=== PATIENT | female | born 1995 | race Caucasian/White ===

== ENCOUNTER → 2020-09-06 | Outpatient (CLI) | payer SELFPAY ==
[2020-09-06 14:42] VITALS: BMI 27.6
[2020-09-06 17:58] LABS: Amphetamine Urine VISTA NEGATIVE (<1000 ng/mL); Barbiturate Urine VISTA NEGATIVE (< 200 ng/mL); Benzodiazepine Urine VISTA NEGATIVE (< 200 ng/mL); Cocaine Urine VISTA NEGATIVE (< 300 ng/mL); Ecstacy Urine VISTA NEGATIVE (< 500 ng/mL); Methadone Urine VISTA NEGATIVE (< 300 ng/mL); PCP Urine VISTA NEGATIVE (< 25 ng/mL); THC Urine VISTA NEGATIVE (< 50 ng/mL); Vista UDS pH Range 6
[2020-09-10 20:08] LABS: Chlamydia By Nucleic Acid AMP Negative (Negative)
[2020-09-10 20:44] LABS: Gonococcus By Nucleic Acid AMP Negative (Negative)
[2020-09-11 18:53] LABS: HPV Reflexed? NOT INDICATED
== END | disposition home or self-care (01) ==
LOC: LABSPEC 16:33
PROVIDERS: Referring Provider Obstetrics & Gynecology; Visit Provider Obstetrics & Gynecology
DX: Z34.00 Encounter for supervision of normal first pregnancy, unspecified trimester (principal); Z12.4 Encounter for screening for malignant neoplasm of cervix
CPT/HCPCS: 80307; 87086; 87088; 87491; 87591; 88175; G0145

== ENCOUNTER → 2020-09-19 15:56 | Outpatient (CLI) | payer SELFPAY ==
[2020-09-19 15:05] VITALS: BMI 27.6
[2020-09-19 16:31] LABS: Absolute Lymphocyte Count 2.19 X10^3/uL (0.83-4.51); Absolute Neutrophil Count 6.1 X10^3/uL (2.0-7.7); Basophil# 0.03 X10^3/uL; Basophil% 0.3 % (0-1); Eosinophil# 0.14 X10^3/uL; Eosinophils% 1.5 % (0-5); Hematocrit 37.9 % (37-47); Hemoglobin 12.1 g/dL (12.0-15.0); Lymphocyte # 2.19 X10^3/ul (0.83-4.51); Lymphocyte % 23.9 % (19-41); Mean Corp Hgb Conc 31.9 g/dL (32-36); Mean Corpuscular Hgb 26.2 pg (27.0-32.0); Mean Platelet Vol. 9.9 fl (6.2-12.0); Monocyte% 7.6 % (0-10); NRBC Flagged by Analyzer 0 % (0-5); Neutrophil # 6.07 X10^3/uL (2.7-7.7); Neutrophil % 66.4 % (47-70); Platelet Count 278 K/mm3 (150-450); RBC Distribution Width CV 14.2 % (11.6-14.6); Red Blood Count 4.62 M/mm3 (4.2-5.4); White Blood Count 9.2 K/mm3 (4.4-11.0)
[2020-09-19 17:13] LABS: NATERA MAILED SPECIMEN
[2020-09-20 08:13] LABS: HIV - WCH Non-Reactive (Nonreactive); Hepatitis B Surface Antigen Non-Reactive (Nonreactive); Hepatitis C Antibody Non-Reactive (Nonreactive); Rubella IgG Reactive (Nonreactive); Syphilis Antibodies Non-reactive
== END ==
PROVIDERS: Referring Provider Obstetrics & Gynecology; Visit Provider Obstetrics & Gynecology
DX: Z34.81 Encounter for supervision of other normal pregnancy, first trimester (principal)
CPT/HCPCS: 36415; 85025; 86703; 86762; 86780; 86803; 86850; 86900; 86901; 87340

== ENCOUNTER → 2020-11-22 14:02 | Outpatient (CLI) | payer SELFPAY ==
[2020-10-17 10:55] VITALS: BMI 27.6
[2020-11-12 10:11] VITALS: BMI 27.6
--- NOTE | 2020-11-22 14:05 | US_ITS ---
STUDY: SECOND AND THIRD TRIMESTER OBSTETRICAL ULTRASOUND REASON FOR EXAM: Female, 25 years old size and dates LMP: 07/07/2020 TECHNIQUE: Transabdominal and Transvaginal TECHNICAL QUALITY: Adequate. PRIOR ULTRASOUND: None. FINDINGS: There is a single intrauterine fetus. The fetus is in a breech presentation. There is demonstrated cardiac activity with a heart rate of 166 bpm. There is a normal amniotic fluid volume. The largest amniotic fluid pocket measures 2.5 cm. . The placenta is posterior and low lying but not previa in location. There are Grade 1 placental changes. The cervix measures 4.4 cm in length. The bilateral adnexal regions are normal. BIOMETRY: BPD: 4.3 cm: 19 weeks, 0 days HC: 17.1 cm: 19 weeks, 5 days AC: 15.0 cm: 20 weeks, 1 days FL: 3.0 cm: 19 weeks, 2 days age by current US: 19 weeks, 4 days. ALYCIA by current US: 04/14/2021. Estimated weight: 311 grams, +/- 47 grams, 47 %. Age by LMP: 19 weeks, 5 days. ALYCIA by LMP: 04/13/2021. ANATOMY: Gender: Male Cranium: Normal lateral ventricles. Normal choroid plexus. Normal cerebellum. Normal cisterna magna. Normal face, nose and lips. Chest: Normal 4-chamber heart. Abdomen/Pelvis: Normal diaphragm. Normal stomach. Normal abdominal wall. Normal cord insertion. Limited 3 vessel umbilical cord view Normal kidneys. Normal bladder. Spine: Normal cervical spine. Normal thoracic spine. Normal lumbar spine. Limited view of the sacrum Extremities: Normal bilateral upper extremities. Normal bilateral lower extremities. US/OB Anatomy Scan IMPRESSION: Single live intrauterine at 19 weeks 4 days by current ultrasound with ALYCIA of 04/14/2021. Heart rate of 166 bpm. Placenta is posterior and low-lying at this point, short-term sonographic follow-up recommended to assure migration away from the cervix. anatomy is sonographically normal low there was limited evaluation of the 3 vessel cord and the sacrum due to positioning Electronically Signed: Zack Garrison MD at 8:49 EDT , Service support ,
== END ==
PROVIDERS: Visit Provider Obstetrics & Gynecology
DX: Z34.01 Encounter for supervision of normal first pregnancy, first trimester (principal)
CPT/HCPCS: 76805; 76817

== ENCOUNTER → 2020-11-28 | Outpatient (CLI) | payer SELFPAY ==
[2020-11-28 13:56] VITALS: BMI 27.6
== END | disposition home or self-care (01) ==
PROVIDERS: Referring Provider Nurse Practitioner Women's Health; Visit Provider Nurse Practitioner Women's Health
DX: O23.40 Unspecified infection of urinary tract in pregnancy, unspecified trimester (principal); Z3A.00 Weeks of gestation of pregnancy not specified
CPT/HCPCS: 87086; 87088

== ENCOUNTER → 2020-12-07 08:54 | Outpatient (CLI) | payer SELFPAY ==
[2020-11-12 10:11] VITALS: BMI 27.6
[2020-11-28 13:56] VITALS: BMI 27.6
--- NOTE | 2020-12-07 08:54 | US_ITS ---
STUDY: SECOND AND THIRD TRIMESTER OBSTETRICAL ULTRASOUND - LIMITED REASON FOR EXAM: Female, 25 years old f/u anatomy LMP: 07/07/2020. PRIOR ULTRASOUND: Comparison is made with prior examination dated 11/22/2020. TECHNIQUE: Transabdominal and Transvaginal TECHNICAL QUALITY: Adequate. FINDINGS: There is a single intrauterine fetus. The fetus is in a cephalic presentation. There is demonstrated cardiac activity with a heart rate of 150 bpm. There is a normal amniotic fluid volume. The largest amniotic fluid pocket measures 3 cm. The amniotic fluid index (BRENDEN) is within normal limits. The placenta is posterior in location and is not low lying. The tip of the placenta is at 2.4 cm proximal to the cervical os. There are Grade 0 placental changes. The cervix measures 6 cm in length. There is evidence of a three-vessel cord. The spine including the sacrum is unremarkable. US/OB Limited (No Biometrics) IMPRESSION: Posterior placenta. The tip of the placenta is at 2.4 cm proximal to the cervical os. Electronically Signed: Eber Muller MD at 13:59 EDT , Service support ,
== END ==
PROVIDERS: Referring Provider Obstetrics & Gynecology; Visit Provider Obstetrics & Gynecology
DX: Z34.01 Encounter for supervision of normal first pregnancy, first trimester (principal)
CPT/HCPCS: 76815

== ENCOUNTER → 2021-01-21 15:43 | Outpatient (CLI) | payer MEDICAID, SELFPAY ==
[2021-01-21 15:59] LABS: Absolute Lymphocyte Count 1.87 X10^3/uL (0.83-4.51); Absolute Neutrophil Count 9.2 X10^3/uL (2.0-7.7); Basophil# 0.04 X10^3/uL; Basophil% 0.3 % (0-1); Eosinophil# 0.09 X10^3/uL; Eosinophils% 0.8 % (0-5); Hematocrit 36.1 % (37-47); Hemoglobin 11.2 g/dL (12.0-15.0); Lymphocyte # 1.87 X10^3/ul (0.83-4.51); Lymphocyte % 15.7 % (19-41); Mean Corpuscular Hgb 25.7 pg (27.0-32.0); Mean Platelet Vol. 9.4 fl (6.2-12.0); Monocyte# 0.62 X10^3/uL; Monocyte% 5.2 % (0-10); NRBC Flagged by Analyzer 0 % (0-5); Neutrophil # 9.19 X10^3/uL (2.7-7.7); Neutrophil % 77.3 % (47-70); Platelet Count 292 K/mm3 (150-450); RBC Distribution Width CV 13.9 % (11.6-14.6); RBC Distribution Width SD 42.6 fl (35.1-43.9); Red Blood Count 4.35 M/mm3 (4.2-5.4); White Blood Count 11.9 K/mm3 (4.4-11.0)
[2021-01-21 16:11] LABS: Glucose Challenge Gest 1H 50g 142 mg/dL (70-140)
== END ==
PROVIDERS: Referring Provider Obstetrics & Gynecology; Visit Provider Obstetrics & Gynecology
DX: O26.899 Other specified pregnancy related conditions, unspecified trimester (principal); Z67.91 Unspecified blood type, Rh negative; Z13.1 Encounter for screening for diabetes mellitus; Z3A.00 Weeks of gestation of pregnancy not specified
CPT/HCPCS: 36415; 82950; 85025; 86850; 86900; 86901

== ENCOUNTER → 2021-01-28 06:43 | Outpatient (CLI) | payer SELFPAY ==
[2021-01-28 08:41] LABS: Glucose GTT-Gestational 1 Hr 162 mg/dL (<190)
[2021-01-28 08:44] LABS: Glucose GTT-Gestation. Fasting 79 mg/dL (<105)
[2021-01-28 09:27] LABS: Glucose GTT-Gestational 2 Hr 147 mg/dL (<165)
[2021-01-28 10:45] LABS: Glucose GTT-Gestational 3 Hr 117 L (<145)
== END ==
PROVIDERS: Referring Provider Obstetrics & Gynecology; Visit Provider Obstetrics & Gynecology
DX: Z13.1 Encounter for screening for diabetes mellitus (principal)
CPT/HCPCS: 36415; 82951; 82952

== ENCOUNTER → 2021-03-01 12:18 | Outpatient (CLI) | payer SELFPAY | PROVIDERS: Visit Provider Obstetrics & Gynecology | DX: Z34.01 Encounter for supervision of normal first pregnancy, first trimester (principal) | CPT/HCPCS: 87086 ==

== ENCOUNTER → 2021-03-18 | Outpatient (CLI) | payer SELFPAY | END | disposition home or self-care (01) | LOC: LABSPEC 14:21 | PROVIDERS: Referring Provider Obstetrics & Gynecology; Visit Provider Obstetrics & Gynecology | DX: Z34.93 Encounter for supervision of normal pregnancy, unspecified, third trimester (principal) | CPT/HCPCS: 87081 ==

== ENCOUNTER 2021-04-11 23:30 | Inpatient (IN) | payer MEDICAID, SELFPAY ==
[2020-09-06 14:42] VITALS: BMI 27.6
[2021-04-11 19:49] VITALS: PULSE 92; O2SAT 98
[2021-04-11 19:55] VITALS: BP 137/90; PULSE 83; PULSE 91; TEMP 36.9; O2SAT 98
[2021-04-11 20:07] VITALS: BP 130/83; PULSE 83
[2021-04-11 20:16] VITALS: BMI 35.1
[2021-04-11] MEDS: hydrOXYzine PAM 25 MG Capsule 50 MG PO (22:39)
[2021-04-12] VITALS (63 sets, daily range): BP systolic 104–163; BP diastolic 57–99; PULSE 66–97; RESP 16; TEMP 36.2–37.7; O2SAT 85–100
[2021-04-12] MEDS: Lactated Ringers 1,000 ML 50 ML IV (00:30)
[2021-04-12] MEDS: Lactated Ringers 500 ML 999 ML IV ×3 (00:40→08:37)
[2021-04-12 00:44] LABS: Absolute Lymphocyte Count 1.67 X10^3/uL (0.83-4.51); Absolute Neutrophil Count 12.2 X10^3/uL (2.0-7.7); Basophil# 0.05 X10^3/uL; Basophil% 0.3 % (0-1); Eosinophil# 0.03 X10^3/uL; Eosinophils% 0.2 % (0-5); Hemoglobin 12.8 g/dL (12.0-15.0); Lymphocyte # 1.67 X10^3/ul (0.83-4.51); Lymphocyte % 11.4 % (19-41); Mean Corp Hgb Conc 32.8 g/dL (32-36); Mean Corpuscular Hgb 25.2 pg (27.0-32.0); Mean Corpuscular Volume 76.9 fL (81-99); Mean Platelet Vol. 10.3 fl (6.2-12.0); Monocyte# 0.68 X10^3/uL; Monocyte% 4.6 % (0-10); NRBC Flagged by Analyzer 0 % (0-5); Neutrophil # 12.18 X10^3/uL (2.7-7.7); Neutrophil % 83.2 % (47-70); Platelet Count 338 K/mm3 (150-450); RBC Distribution Width CV 15.9 % (11.6-14.6); Red Blood Count 5.07 M/mm3 (4.2-5.4); White Blood Count 14.7 K/mm3 (4.4-11.0)
[2021-04-12] MEDS: fentaNYL-bupivacaine (epidural) 100 ML BAG EPIDURAL ×3 (01:42→12:15)
[2021-04-12] MEDS: Lactated Ringers 1,000 ML 200 ML IV (05:28)
--- NOTE | 2021-04-12 07:04 | HP.PCM.OB_ITS ---
HPI - General General Date of Admission: 04/11/21 HPI Narrative TERRENCE SOSA, is a 25 who presents to L&D with painful contractions around 9 pm last night. She changed her cx from 1 cm to 2 cm and was requesting epidural. Her was uncomplicated. She is RH negative and GBS negative. Maternal Data Information ALYCIA Calculator Estimated Delivery Date Method Current WG Current Estimate 04/13/21 LMP (Certain) 39w 6d Other Estimates 04/10/21 Ultrasound #1 40w 2d PFSH PFSH Medical History (Updated 04/12/21 @ 07:[address] Delma Hayden, DO) Abnormal glucose affecting Home Medications prenat.vits,roslyn,[id number] 1 tab PO DAILY 09/06/20 [History Last Taken Unknown] Allergy/AdvReac Type Severity Reaction Status Date / Time No Known Allergies Allergy Verified 04/11/21 20:17 Family History Father Cancer prostate CAD (coronary artery disease) Mother Cancer appendix with mets 2008 Grandmother No problems noted. Brother Cancer bone cancer age 10 Surgical History (Updated 04/11/21 @ 22:46 by Beronica Chiu) History of surgery Social History adopted: No household members: spouse current occupational status: employed current occupation: [employer] Smoking Status: Never smoker alcohol intake: current alcohol intake frequency: holidays/special occasions only additional social history: Spouse:Christopher History 1 Elective abortions Hx Para 0 Spontaneous abortions Hx # Term Pregnancies Ectopic pregnancies Hx # Pregnancies Multiple births # of living children Visit Details Expected Delivery Route/Plan Labor Preferences- CB/BF classes: discussed labor support person: partner Jeff labor intervention preferences: discussed possible IOL at term due to living over an hour away. pain management options preferred: open to epidural prefers minimal intervention cut cord/dad catch: ye : yes PP control planned: discussed possible routes of delivery and associated risks: special requests: [] Plans covid status: non immune, counseled regarding risk of covid in vs vaccination and considering vaccination flu vaccine: declined tdap vaccine: given rhogam: given LARC form signed: declined movement and labor precautions reviewed. Problem list reviewed and updated with the most current plan of care details and appropriate orders placed. Relevant counseling for the gestational age provided. Continue routine care and follow up unless otherwise noted in visit notes/problem list details OB Flowsheet Initial Weight: 171 lb Date -?-?-?-?-?-?-?-?-?-?-?--?- EGA Weight BP Urine Prot -?-?-?-?-?-?-?-?-?-?-?-?- Glucose FHR FuHt Pres Dilation -?-?-?-?-?-?-?-?-?-?-?-?- Effaced St Visit Note 09/06/20 -?-?-?-?-?-?-?-?-?-?-?-?- 8w 5d 171 lb (+0 oz) 130/80 -?-?-?-?-?-?-?-?-?-?-?-?- 160 -?-?-?-?-?-?-?-?-?-?-?-?- GP - CRL 22mm co nsistent with LMP. GP - CRL 22mm consistent wit h LMP. Small BHAVANA noted on initial OB - repeat scan in 1-2w 09/19/20 -?-?-?-?-?-?-?-?-?-?-?-?- 10w 4d 171 lb 6 oz (+6 oz) 112/78 Negative -?-?-?-?-?-?-?-?-?-?-?-?- Negative 175 -?-?-?-?-?-?-?-?-?-?-?-?- GP - no cramping or bleeding. BHAVANA resolved. 10/17/20 -?-?-?-?-?-?-?-?-?-?-?-?- 14w 4d 170 lb 8 oz (-8 oz) 104/72 Negative -?-?-?-?-?-?-?-?-?-?-?-?- Negative 160 -?-?-?-?-?-?-?-?-?-?-?-?- GP - no cramping or bleeding. Anatomy scan ordered. It's a boy!! 11/12/20 -?-?-?-?-?-?-?-?-?-?-?-?- 18w 2d 176 lb (+5 lb) 118/70 Negative -?-?-?-?-?-?-?-?-?-?-?-?- Negative 155 -?-?-?-?-?-?-?-?-?-?-?-?- GP - no LOF, VB, DFM, ctx. Anatomy scan 11/22. Discussed cramping/back pain. 12/10/20 -?-?-?-?-?-?-?-?-?-?-?-?- 22w 2d 185 lb (+14 lb) 102/88 Negative -?-?-?-?-?-?-?-?-?-?-?-?- Negative 150 -?-?-?-?-?-?-?-?-?-?-?-?- SM- no vb lof go od fm no regular ctx 01/07/21 -?-?-?-?-?-?-?-?-?-?-?-?- 26w 2d 191 lb (+20 lb) 110/80 -?-?-?-?-?-?-?-?-?-?-?-?- 150 -?-?-?-?-?-?-?-?-?-?-?--?- Sm- no vb lof go od fm no regular ctx 01/21/21 -?-?-?-?-?-?-?-?-?-?-?-?- 28w 2d 195 lb (+24 lb) 100/72 Negative -?--?-?-?-?-?-?-?-?-?-?-?- Negative 150 28 -?-?-?-?-?-?-?-?-?-?-?-?- SM- no vb lof go od fm no regular ctx labs today tdap 02/05/21 -?-?-?-?-?-?-?-?-?-?-?-?- 30w 3d 197 lb (+26 lb) 132/86 Negative -?-?-?-?-?-?-?-?-?-?-?-?- Negative 145 31 -?-?-?-?-?-?-?-?-?-?-?-?- SM- no vb lof go od fm no reuglar ctx 02/18/21 -?-?-?-?-?-?-?-?-?-?-?-?- 32w 2d 205 lb 8 oz (+34 lb 8 oz) 110/72 Negative -?-?-?-?-?-?-?-?-?-?-?-?- Negative 125 32 -?-?-?-?-?-?-?-?-?-?-?-?- SM- no vb lof go od fm no regular ctx 03/01/21 -?-?-?-?-?-?-?-?-?-?-?-?- 33w 6d 205 lb (+34 lb) 120/68 Negative -?-?-?-?-?-?-?-?-?-?-?-?- Negative 134 33 0 -?-?-?-?-?-?-?-?-?-?-?-?- 0 JV- no l of, vaginal bleeding, or dec fm. pt is being seen unscheduled due to pain. PTL precautions discussed 03/05/21 -?-?-?-?-?-?-?-?-?-?-?-?- 34w 3d 206 lb (+35 lb) 124/86 Negative -?-?-?-?-?-?-?-?-?-?-?-?- Negative 145 34 -?-?-?-?-?-?-?-?-?-?-?-?- SM- no vb lof go od fm no regular ctx 03/18/21 -?-?-?-?-?-?-?-?-?-?-?-?- 36w 2d 217 lb (+46 lb) 126/88 Negative -?-?-?-?-?-?-?-?-?-?-?-?- Negative -?-?-?-?-?-?-?-?-?-?-?-?- 03/29/21 -?-?-?-?-?-?-?-?-?-?-?-?- 37w 6d 214 lb 2 oz (+43 lb 2 oz) 138/84 Negative -?-?-?-?-?-?-?-?-?-?-?-?- Negative 140 38 Cephalic 0 -?-?-?-?-?-?-?-?-?-?-?-?- SM- no vb lof go od fm nor euglar ctx 04/05/21 -?-?-?-?-?-?-?-?-?-?-?-?- 38w 6d 216 lb (+45 lb) 122/80 Negative -?-?-?-?-?-?-?-?-?-?-?-?- Negative 140 39 Cephalic 1 -?-?-?-?-?-?-?-?-?-?-?-?- SM- no vb lof go od fm no regular ctx 04/11/21 -?-?-?-?-?-?-?-?-?-?-?-?- 39w 5d 218 lb 9.6 oz (+47 lb 9.6 oz) 137/90 137/90 130/83 162/99 163/94 135/88 143/88 130/93 122/78 125/81 130/83 130/81 128/83 140/93 130/89 131/78 124/78 119/71 116/70 104/57 124/81 124/78 111/61 -?-?-?-?-?-?-?-?-?-?-?-?- -?-?-?-?-?-?-?-?-?-?-?-?- ROS Constitutional Constitutional: Denies change in weight, fatigue, fever(s), headache(s), poor appetite or weakness Eyes Eyes: Denies blurry vision, change in vision, seeing flashes or spots in vision ENT HEENT: Denies dizziness, headache(s), loss taste/smell or sore throat Cardiovascular Cardiovascular: Denies chest pain, dizziness, dyspnea, irregular heart rhythm, leg edema, palpitations, rapid heart rate or vomiting Respiratory/Chest Respiratory/Chest: Denies chest tightness, cough, dyspnea or breast pain Gastrointestinal Gastrointestinal: Denies abdominal pain, anorexia, constipation, cramping, diarrhea, hemorrhoids, vomiting or weight changes Genitourinary Genitourinary: Denies dysuria, flank pain, genital lesions, genital pain, urinary frequency or urinary urgency Musculoskeletal Musculoskeletal: Denies back pain, difficulty walking, joint pain, limited range of motion, muscle cramps or numbness Integumentary Integumentary: Denies lesions or unusual bruising Neurologic Neurologic: Denies abnormal movements, abnormal speech, dizziness, numbness, seizure-like activity or syncope Psychiatric Psychiatric: Denies anxiety, behavioral changes, change in appetite, change in libido, cognitive impairment, confusion, depression, difficulty concentrating, hallucinations or suicidal thoughts Endocrine Endocrinology: Denies excessive sweating, polydipsia or polyuria Hematologic/Lymphatic Hematologic/Lymphatic: Denies easy bleeding, easy bruising or lymphadenopathy Allergic/Immunologic Allergic/Immunologic: Denies itchy eyes, lip swelling, seasonal rhinorrhea, rhinitis, throat swelling, tongue swelling, eczemia, wheezing or asthma Vital Signs Vital Signs Vital Signs: 04/11/21 19:49 04/11/21 19:55 04/11/21 20:07 Temperature 98.4 F Temperature Source Temporal Pulse Rate 92 91 83 Blood Pressure 137/90 H 130/83 H BP Systolic 137 130 BP Diastolic 90 83 Pulse Ox 98 98 04/12/21 00:45 04/12/21 00:46 04/12/21 00:47 Temperature 97.8 F Temperature Source Temporal Pulse Rate 71 72 Blood Pressure 162/99 H BP Systolic 162 BP Diastolic 99 Pulse Ox 100 93 04/12/21 00:48 04/12/21 00:57 04/12/21 01:08 Temperature Temperature Source Pulse Rate 79 93 91 Blood Pressure 163/94 H 135/88 H BP Systolic 163 135 BP Diastolic 94 88 Pulse Ox 100 04/12/21 01:12 04/12/21 01:13 04/12/21 01:18 Temperature Temperature Source Pulse Rate 80 77 81 Blood Pressure 143/88 H BP Systolic 143 BP Diastolic 88 Pulse Ox 100 99 04/12/21 01:22 04/12/21 01:23 04/12/21 01:27 Temperature Temperature Source Pulse Rate 81 Blood Pressure 130/93 H 122/78 H BP Systolic 130 122 BP Diastolic 93 78 Pulse Ox 96 04/12/21 01:28 04/12/21 01:33 04/12/21 01:37 Temperature Temperature Source Pulse Rate 80 87 89 Blood Pressure 125/81 H BP Systolic 125 BP Diastolic 81 Pulse Ox 99 99 04/12/21 01:38 04/12/21 01:42 04/12/21 01:43 Temperature Temperature Source Pulse Rate 77 84 77 Blood Pressure 130/83 H 130/81 H BP Systolic 130 130 BP Diastolic 83 81 Pulse Ox 98 99 04/12/21 01:47 04/12/21 01:48 04/12/21 01:53 Temperature Temperature Source Pulse Rate 81 82 Blood Pressure 128/83 H 140/93 H BP Systolic 128 140 BP Diastolic 83 93 Pulse Ox 100 98 04/12/21 01:57 04/12/21 01:58 04/12/21 02:02 Temperature Temperature Source Pulse Rate 85 80 Blood Pressure 130/89 H 131/78 H BP Systolic 130 131 BP Diastolic 89 78 Pulse Ox 100 04/12/21 02:03 04/12/21 02:06 04/12/21 02:08 Temperature Temperature Source Pulse Rate 73 90 77 Blood Pressure 124/78 H BP Systolic 124 BP Diastolic 78 Pulse Ox 100 99 04/12/21 02:13 04/12/21 02:18 04/12/21 02:19 Temperature 97.7 F L Temperature Source Temporal Pulse Rate 85 81 Blood Pressure 119/71 BP Systolic 119 BP Diastolic 71 Pulse Ox 100 98 04/12/21 03:13 04/12/21 03:14 04/12/21 04:04 Temperature 99.8 F H 98.3 F Temperature Source Temporal Temporal Pulse Rate 89 77 Blood Pressure 116/70 104/57 L BP Systolic 116 104 BP Diastolic 70 57 Pulse Ox 98 96 04/12/21 04:55 04/12/21 05:34 04/12/21 06:48 Temperature 99.2 F H 99.7 F H 99.3 F H Temperature Source Temporal Temporal Temporal Pulse Rate 82 84 Blood Pressure 124/81 H 124/78 H 111/61 BP Systolic 124 124 111 BP Diastolic 81 78 61 Pulse Ox 99 97 04/12/21 06:49 Temperature Temperature Source Pulse Rate 89 Blood Pressure BP Systolic BP Diastolic Pulse Ox 97 Weight Weight: 218 lb 9.6 oz Body Mass Index (BMI) 35.1 Physical Exam Const alert, oriented x3, no apparent distress and healthy appearing General Appearance: cooperative; Negative for anxious HEENT normocephalic Face and Sinus: normal facial exam Eyes EOMs intact bilaterally and no scleral icterus General Eye: normal appearance of both eyes Neck full ROM and supple Lymph Lymphatic: no lymphadenopathy noted Chest Chest: abnormal inspection of the chest Resp normal respiratory effort Effort and Inspection: able to speak in complete sentences Cardio regular rate GI soft to palpation and non-tender Inspection: gravid Palpation: soft; Negative for tender external exam normal Manual OB Exam: dilated currently 5.5 with bulging membranes Back/Spine no CVA tenderness Extremity normal to inspection, full ROM and no clubbing, cyanosis or edema General Extremity: Negative for calf tenderness or edema Skin Lesions: no lesions Rashes: no rashes Psych mental status grossly normal Labs Labs Labs: Blood Type B NEGATIVE Antibody Screen NEGATIVE Hct 39.0 % (37-47) Hgb 12.8 g/dL (12.0-15.0) Obstetrics US Syphilis Total Ab Non-reactive Rubella IgG Antibody Reactive (Nonreactive) Hep Bs Antigen Non-Reactive (Nonreactive) Neisseria gonorrhoeae DNA (NIDA) Negative (Negative) HIV 1&2 Antibody Non-Reactive (Nonreactive) Glucose 1 Hr 50 gm 142 mg/dL (70-140) H Assessment & Plan (1) : QUALIFIERS: Weeks of gestation: 37 weeks Qualified Code(s): Z3A.37 - 37 weeks gestation of COMMENT: Negative GBS, Declines carrier and afp screen. NIPT low risk. nl anatomy (2) Supervision of normal first : QUALIFIERS: Trimester: first trimester Qualified Code(s): Z34.01 - Encounter for supervision of normal first , first trimester COMMENT: PRR ALYCIA:04/13/21 Raman Carrizales Spouse: Hussein (3) Rh negative status during : COMMENT: rhogam given at 28 weeks PRN (4) Abnormal glucose affecting : COMMENT: -NL 3 hr GTT (5) Active labor: PLAN: Patient presents IAL, plan expectant management for , pitocin/AROM PRN if needed. Pain management: plans epidural. GBS negative. Management of any complications: none I have reviewed the [facility] and made any clinically relevant updates.
[2021-04-12] MEDS: Oxytocin 30 units/NS 500 ml 30 UNITS/500 ML IV.SOLN IV (09:22)
[2021-04-12] MEDS: Ondansetron 4 MG/2 ML Vial IV (10:23)
[2021-04-12] MEDS: Oxytocin 30 units/NS 500 ml 30 UNITS/500 ML IV.SOLN 334 UNITS IV (12:34)
[2021-04-12] MEDS: Methylergonovine 0.2 MG/ML Ampul IM (12:37)
--- NOTE | 2021-04-12 13:02 | OP.PCM_ITS ---
Maternal Data Information ALYCIA Calculator Estimated Delivery Date Method Current WG Current Estimate 04/13/21 LMP (Certain) 39w 6d Other Estimates 04/10/21 Ultrasound #1 40w 2d Vaginal Delivery Maternal Presentation Maternal Presentation: Active Labor Operative Information Date of Procedure: 04/12/21 Pre-Operative Diagnosis: 39 weeks 5 days active labor Post-Operative Diagnosis: 39 weeks 5 days active labor , maternal exhaustion Surgery / Procedure Performed: Vacuum Assisted Vaginal Delivery Type of Anesthesia: Epidural Estimated Blood Loss: 300cc Findings Description of Procedure: Patient pushed for 3 hours and requested a vacuum assistance due to exhaustion. The infant right occiput occipital anterior presentation 100% effacement and +3 station. Perineum was prepped with Betadine solution the bladder was drained. The Kiwi vacuum was placed on the correct placement in front of the posterior fontanelle which was confirmed digitally. With the patient's next contraction the vacuum was inflated and a gentle downward pressure was used to assist with bringing the baby's head to the peritoneum and delivered the vacuum was released and the heart tones r emained stable. The head was ultimately Delivered in the ZEE presentation. The head was delivered atraumatically and a loose nuchal cord ?2 was identified and easily reduced over the 's head. The anterior and posterior shoulders delivered without complication followed by the rest of the and the infant was placed on the maternal abdomen. Delayed cord clamping was employed for approximately 60 seconds. Cord was clamped and cut and gentle traction was applied to the cord and the placenta delivered spontaneously immediately following it was noted to be intact with three-vessel cord. The perineum and vagina were inspected and There was noted to be a 2nd degree perineal laceration that was repaired using a 2-0 vicryl. EBL was 300cc and there continued to be uterine atony with slight bleeding. Methergine IM was given. Patient and infant tolerated delivery well. Presentation: Vertex and ZEE Amniotic Membrane Rupture Type: Artificial Amniotic Fluid Description: Moderate meconium Placental Delivery Description: Expressed Placenta Disposition: [facility] Cord Vessel Description: 3 Vessels Cord Entanglement: Around neck x 2, loose Nuchal Cord Compression: Without compression Infant A Gender: Male (1 minute): 6 (5 minute): 8 Delayed Cord Clamping: Yes Post Vaginal Delivery Medications Given After Delivery: IV Pitocin Episiotomy Description: None Laceration: Midline and 2nd degree Complication Complications: None Multi Select Codes Urinary/Genital Urinary/Genital CPT Codes: 63144 Vaginal Delivery [facility]
--- NOTE | 2021-04-12 13:12 | PCM.DC ---
Discharge Instructions Diet Discharge Diet: No restrictions Activity Discharge Activity: Return to Normal Activity, May Not Drive (while taking narcotic pain medications.) and May Shower May resume sexual activity in: 4-6 weeks Dressing / Incision Call your doctor if your incision/area has: Continuous Slow Oozing, Sudden Increased Bleeding, Increased Pain/ Swelling, Increased Redness and Foul Smelling Discharge Follow Up Care Please Follow Up With: Delma Hayden DO When: Call [phone] to make an appointment with your doctor in 6 weeks. If you had elevated blood pressure or 4th degree laceration, you will need to be seen in 2 weeks. Test Results: Test results from this visit will be discussed in further detail at your follow-up appointment, if applicable. Discharge Plan Admission Admit Date/Time: 04/11/21 23:30 Attending Provider: Delma Hayden Primary Care Provider: Care Physician,No Primary Discharge Orders/Prescriptions Prescriptions: New ibuprofen 800 mg tablet 800 mg PO Q8H PRN (Reason: Pain, Moderate) 7 Days Qty: 30 RF: 0 docusate sodium [Colace] 100 mg capsule 100 mg PO DAILY 14 Days Qty: 14 RF: 0 Continued prenat.vits,roslyn,[id number] Tablet 1 tab PO DAILY RF: 0 Referrals / Follow Up: Care Physician,No Primary [Primary Care Provider] - Disposition Disposition (needs filled in before D/C Order can be placed): Home, Self Care
[2021-04-12] MEDS: 0.9% Saline Lock 10 ML Syringe IV (15:11)
--- NOTE | 2021-04-12 16:03 | NURSING ---
Epidural catheter removed. Blue tip intact.
[2021-04-12] MEDS: Acetaminophen 500 MG Tablet 1000 MG PO (16:04)
--- NOTE | 2021-04-12 16:04 | NURSING ---
Report given to Allison Pineda RN, who will now assume care of this patient at this time.
[2021-04-12] MEDS: Ibuprofen 600 MG Tablet PO (17:47)
[2021-04-12] MEDS: Senna/Docusate Sodium 1 Tablet PO (21:43)
[2021-04-13 00:51] VITALS: BP 130/73; PULSE 80; RESP 16; TEMP 36.7
[2021-04-13] MEDS: Ibuprofen 600 MG Tablet PO ×2 (01:51→08:51)
[2021-04-13] MEDS: Acetaminophen 500 MG Tablet 1000 MG PO ×2 (02:45→19:42)
[2021-04-13 05:06] VITALS: BP 130/76; PULSE 74; RESP 16; TEMP 36.6
--- NOTE | 2021-04-13 08:45 | PCM.PN.OB ---
Subjective Subjective Patient doing well without complaints. Tolerating PO. Ambulating and voiding without difficulty. Feeding well. Denies chest pain, shortness of breath, calf pain/swelling, fevers, chills, lightheadedness. Baby is in NICU for hypoglycemia Objective Data Objective Data Vital Signs: Vital Signs Temp Pulse Resp BP Pulse Ox 97.8 F 74 16 130/76 H 98 04/13/21 05:06 04/13/21 05:06 04/13/21 05:06 04/13/21 05:06 04/12/21 11:49 Oxygen Delivery Method Room Air Weight: 218 lb 9.6 oz Body Mass Index (BMI) 35.1 Intake & Output: Intake and Output for Last 24 Hours 04/11/21 04/12/21 04/13/21 23:59 23:59 23:59 Intake Total 800 / 800 4237.95 / 4237.95 Output Total 2250 / 2250 Balance 800 / 800 1987.95 / 1987.95 Lab / Micro Data Result Diagrams: 04/12/21 00:30 Labs: Laboratory Results - last 24 hr 04/12/21 16:15: Screen NEGATIVE, Baby's Blood Type O POSITIVE, Baby's CAMPBELL NEGATIVE Micro: Microbiology 04/12/21 00:15 Nasal Secretion SARS-CoV-2 Antigen (Rapid) - Final ROS Constitutional Constitutional: Denies chills, fatigue, fever(s), poor appetite or weakness Eyes Eyes: Denies blurry vision, change in vision, seeing flashes or spots in vision ENT HEENT: Denies dizziness, headache(s), loss taste/smell or sore throat Cardiovascular Cardiovascular: Denies chest pain, dizziness, dyspnea, irregular heart rhythm, palpitations or rapid heart rate Respiratory/Chest Respiratory/Chest: Denies chest tightness, cough, dyspnea or breast pain Gastrointestinal Gastrointestinal: Denies abdominal pain, constipation or vomiting Genitourinary Genitourinary: Denies dysuria or flank pain Musculoskeletal Musculoskeletal: Denies difficulty walking, joint pain, limited range of motion or numbness Neurologic Neurologic: Denies abnormal movements, abnormal speech, dizziness, numbness, seizure-like activity or syncope Psychiatric Psychiatric: Denies anxiety, behavioral changes, change in appetite, confusion, depression or suicidal thoughts Physical Exam Const alert, oriented x3 and no apparent distress General Appearance: cooperative and comfortable Resp normal respiratory effort Cardio regular rate GI normal to inspection, nondistended, normoactive bowel sounds GI Narrative: uterus is firm below umbilicus Palpation: soft Bimanual Exam - Adnexa, Other: Negative for cul-de-sac fullness Back/Spine no CVA tenderness and thoraco-lumbar ROM normal Extremity normal to inspection, no clubbing, cyanosis or edema, no calf tenderness and no pedal edema Psych mental status grossly normal, thought process normal, cooperative, affect normal, speech normal, activity/motor behavior normal, denies homicidal ideation and denies suicidal ideation Assessment & Plan (1) state: PLAN: s/p PPD # 1 1. routine post delivery care 2. breast feeding- support given 3. rh positive 4. rubella immune 5. DC plan for tomorrow due to ongoing perineal pain and baby in NICU
[2021-04-13] MEDS: Prenatal Vits Tablet 1 TABLET PO (08:52)
[2021-04-13 09:30] VITALS: BP 125/78; PULSE 78; RESP 16; TEMP 36.2; O2SAT 98
[2021-04-13] MEDS: Senna/Docusate Sodium 1 Tablet PO (10:37)
[2021-04-13 12:51] VITALS: BP 117/76; PULSE 77; RESP 16; TEMP 36.4; O2SAT 97
[2021-04-13 17:30] VITALS: BP 119/79; PULSE 80; RESP 16; TEMP 36.7
[2021-04-13 19:49] VITALS: BP 113/77; PULSE 83; RESP 16; TEMP 36.2; O2SAT 98
[2021-04-14] MEDS: Ibuprofen 600 MG Tablet PO ×2 (03:12→12:21)
[2021-04-14 03:15] VITALS: BP 118/76; PULSE 82; RESP 16; TEMP 36.4; O2SAT 98
--- NOTE | 2021-04-14 09:37 | PCM.PN.OB ---
Subjective Subjective Patient doing well without complaints. Tolerating PO. Ambulating and voiding without difficulty. Feeding well. Denies chest pain, shortness of breath, calf pain/swelling, fevers, chills, lightheadedness. Objective Data Objective Data Vital Signs: Vital Signs Temp Pulse Resp BP Pulse Ox 97.5 F L 82 16 118/76 98 04/14/21 03:15 04/14/21 03:15 04/14/21 03:15 04/14/21 03:15 04/14/21 03:15 Oxygen Delivery Method Room Air Weight: 218 lb 9.6 oz Body Mass Index (BMI) 35.1 Intake & Output: Intake and Output for Last 24 Hours 04/12/21 04/13/21 04/14/21 23:59 23:59 23:59 Intake Total 4237.95 / 4237.95 Output Total 2250 / 2250 Balance / 1986. Lab / Micro Data Result Diagrams: 04/12/21 00:30 Micro: Microbiology 04/12/21 00:15 Nasal Secretion SARS-CoV-2 Antigen (Rapid) - Final ROS Constitutional Constitutional: Denies chills, fatigue, fever(s), poor appetite or weakness Eyes Eyes: Denies blurry vision, change in vision, seeing flashes or spots in vision ENT HEENT: Denies dizziness, headache(s), loss taste/smell or sore throat Cardiovascular Cardiovascular: Denies chest pain, dizziness, dyspnea, irregular heart rhythm, palpitations or rapid heart rate Respiratory/Chest Respiratory/Chest: Denies chest tightness, cough, dyspnea or breast pain Gastrointestinal Gastrointestinal: Denies abdominal pain, constipation or vomiting Genitourinary Genitourinary: Denies dysuria or flank pain Musculoskeletal Musculoskeletal: Denies difficulty walking, joint pain, limited range of motion or numbness Neurologic Neurologic: Denies abnormal movements, abnormal speech, dizziness, numbness, seizure-like activity or syncope Psychiatric Psychiatric: Denies anxiety, behavioral changes, change in appetite, confusion, depression or suicidal thoughts Physical Exam Const alert, oriented x3 and no apparent distress General Appearance: cooperative and comfortable Resp normal respiratory effort Cardio regular rate GI normal to inspection, nondistended, normoactive bowel sounds GI Narrative: uterus is firm below umbilicus Palpation: soft Bimanual Exam - Adnexa, Other: Negative for cul-de-sac fullness Back/Spine no CVA tenderness and thoraco-lumbar ROM normal Extremity normal to inspection, no clubbing, cyanosis or edema, no calf tenderness and no pedal edema Psych mental status grossly normal, thought process normal, cooperative, affect normal, speech normal, activity/motor behavior normal, denies homicidal ideation and denies suicidal ideation Assessment & Plan (1) state: PLAN: PPD#2 doing much better today dermoplast for perineal discomfort f/u in 6 weeks
[2021-04-14] MEDS: Benzocaine/Lanolin/Aloe Vera 1 SPRAY EACH TOPICAL (09:50)
[2021-04-14 10:00] VITALS: BP 117/71; PULSE 87; RESP 18; TEMP 36.9; O2SAT 99
[2021-04-14] MEDS: Prenatal Vits Tablet 1 TABLET PO (12:21)
[2021-04-14 16:10] VITALS: BP 122/79; PULSE 74; RESP 18; TEMP 36.3; O2SAT 99
== END 2021-04-14 18:30 | disposition home or self-care (01) | DRG 807 ==
LOC: WP 04-12 09:19 → WPOUT 04-12 10:32
PROVIDERS: Admitting Provider Obstetrics & Gynecology; Visit Provider Obstetrics & Gynecology
DX: O75.81 Maternal exhaustion complicating labor and delivery (principal); Z37.0 Single live birth; Z3A.39 39 weeks gestation of pregnancy; O69.81X0 Labor and delivery complicated by cord around neck, without compression, not applicable or unspecified; O77.0 Labor and delivery complicated by meconium in amniotic fluid; O70.1 Second degree perineal laceration during delivery; O62.2 Other uterine inertia
CPT/HCPCS: 59025; 59050; 85025; 85461; 86850; 86900; 86901; 87426; 90384; 99218; J7120; A4216; G0378; J2405; J2790

== ENCOUNTER → 2022-10-01 | Outpatient (CLI) | payer MEDICAID, SELFPAY ==
[2022-10-05 07:07] LABS: Chlamydia By Nucleic Acid AMP Negative (Negative); Gonococcus By Nucleic Acid AMP Negative (Negative)
== END | disposition home or self-care (01) ==
LOC: LABSPEC 16:08
PROVIDERS: Referring Provider Registered Nurse; Visit Provider Registered Nurse
DX: O09.90 Supervision of high risk pregnancy, unspecified, unspecified trimester (principal); Z3A.00 Weeks of gestation of pregnancy not specified
CPT/HCPCS: 87086; 87491; 87591

== ENCOUNTER → 2022-10-15 | Outpatient (CLI) | payer MEDICAID, SELFPAY ==
[2022-10-15 12:49] LABS: Absolute Neutrophil Count 5.1 X10^3/uL (2.0-7.7); Basophil# 0.03 X10^3/uL; Basophil% 0.4 % (0-1); Eosinophil# 0.11 X10^3/uL; Eosinophils% 1.4 % (0-5); Hematocrit 37.7 % (37-47); Hemoglobin 11.9 g/dL (12.0-15.0); Lymphocyte % 26.9 % (19-41); Mean Corp Hgb Conc 31.6 g/dL (32-36); Mean Corpuscular Hgb 25.1 pg (27.0-32.0); Mean Corpuscular Volume 79.4 fL (81-99); Monocyte# 0.46 X10^3/uL; Monocyte% 5.9 % (0-10); NRBC Flagged by Analyzer 0 % (0-5); Neutrophil # 5.08 X10^3/uL (2.7-7.7); Platelet Count 294 K/mm3 (150-450); RBC Distribution Width CV 15.5 % (11.6-14.6); RBC Distribution Width SD 44.5 fl (35.1-43.9); Red Blood Count 4.75 M/mm3 (4.2-5.4); White Blood Count 7.8 K/mm3 (4.4-11.0)
[2022-10-15 13:15] LABS: NATERA MAILED SPECIMEN
[2022-10-15 13:52] LABS: Glucose Challenge Gest 1H 50g 114 mg/dL (70-140); T4 Free Direct 1.06 ng/dL (0.76-1.46); Thyroid Stim Hormone (TSH) 0.55 uIU/mL (0.358-3.74)
[2022-10-15 14:05] LABS: HIV - WCH Non-Reactive (Nonreactive); Hepatitis B Surface Antigen Non-Reactive (Nonreactive); Hepatitis C Antibody Non-Reactive (Nonreactive); Rubella IgG Reactive (Nonreactive); Syphilis Antibodies Non-reactive
== END | disposition home or self-care (01) ==
LOC: LAB 12:08
PROVIDERS: Referring Provider Registered Nurse; Visit Provider Registered Nurse
DX: O99.210 Obesity complicating pregnancy, unspecified trimester (principal); Z87.42 Personal history of other diseases of the female genital tract; E66.9 Obesity, unspecified; Z3A.00 Weeks of gestation of pregnancy not specified
CPT/HCPCS: 36415; 82950; 84439; 84443; 85025; 86703; 86762; 86780; 86803; 86850; 86900; 86901; 87340

== ENCOUNTER → 2023-01-01 | Outpatient (CLI) | payer MEDICAID, SELFPAY | END | disposition home or self-care (01) | LOC: LAB 11:30 | PROVIDERS: Referring Provider Registered Nurse; Visit Provider Registered Nurse | DX: N89.8 Other specified noninflammatory disorders of vagina (principal) | CPT/HCPCS: 87070; 87205 ==

== ENCOUNTER → 2023-02-11 | Outpatient (CLI) | payer MEDICAID, SELFPAY ==
[2023-02-11 14:22] LABS: Absolute Lymphocyte Count 1.67 X10^3/uL (0.83-4.51); Absolute Neutrophil Count 7.8 X10^3/uL (2.0-7.7); Basophil# 0.03 X10^3/uL; Basophil% 0.3 % (0-1); Eosinophil# 0.09 X10^3/uL; Eosinophils% 0.9 % (0-5); Hematocrit 35.3 % (37-47); Hemoglobin 10.8 g/dL (12.0-15.0); Lymphocyte # 1.67 X10^3/ul (0.83-4.51); Lymphocyte % 16.5 % (19-41); Mean Corp Hgb Conc 30.6 g/dL (32-36); Mean Corpuscular Hgb 24.3 pg (27.0-32.0); Mean Corpuscular Volume 79.5 fL (81-99); Mean Platelet Vol. 9.7 fl (6.2-12.0); Monocyte# 0.44 X10^3/uL; Monocyte% 4.4 % (0-10); NRBC Flagged by Analyzer 0 % (0-5); Neutrophil # 7.84 X10^3/uL (2.7-7.7); Neutrophil % 77.5 % (47-70); Platelet Count 339 K/mm3 (150-450); RBC Distribution Width CV 15.5 % (11.6-14.6); RBC Distribution Width SD 44.6 fl (35.1-43.9); Red Blood Count 4.44 M/mm3 (4.2-5.4); White Blood Count 10.1 K/mm3 (4.4-11.0)
[2023-02-11 14:48] LABS: Glucose Challenge Gest 1H 50g 110 mg/dL (70-140)
[2023-02-11 15:17] LABS: HIV - WCH Non-Reactive (Nonreactive); Syphilis Antibodies Non-reactive
== END | disposition home or self-care (01) ==
LOC: LAB 13:52
PROVIDERS: Referring Provider Registered Nurse; Visit Provider Registered Nurse
DX: O09.90 Supervision of high risk pregnancy, unspecified, unspecified trimester (principal); Z3A.00 Weeks of gestation of pregnancy not specified; Z13.1 Encounter for screening for diabetes mellitus
CPT/HCPCS: 36415; 82950; 85025; 86703; 86780; 86850; 86900; 86901

== ENCOUNTER 2023-02-27 16:48 | Outpatient (CLI) | payer MEDICAID, SELFPAY ==
[2023-02-27 17:12] VITALS: BMI 36.7
[2023-02-27 17:16] VITALS: BP 133/84; PULSE 81
[2023-02-27 17:31] VITALS: BP 139/86; PULSE 89
--- NOTE | 2023-02-27 17:40 | OB.TRI.HP_ITS ---
HPI - General General Date of Service: 02/27/23 HPI Narrative TERRENCE SOSA, is a 27 F 30.1 weeks who presents to labor and delivery for headache. has had headache for the last few days and has a history of migraines. She has been taking tylenol 1000mg with little relief. Has been trying to cut down on caffeine intake. Denies dizziness or blurred vision. No RUQ pain or changes in swelling. Maternal Data Information ALYCIA Calculator Estimated Delivery Date Method Current WG Current Estimate 05/07/23 LMP (Certain) 30w 1d Final ALYCIA: 05/07/23 Final ALYCIA Source: US >20 weeks Gestational age: 30.1 PFSH PFSH Medical History Abnormal glucose affecting state Home Medications prenat.vits,roslyn,[id number] 1 tab PO DAILY 09/06/20 [History Last Taken Unknown] Allergy/AdvReac Type Severity Reaction Status Date / Time No Known Allergies Allergy Verified 02/26/23 09:42 Family History Father Cancer prostate CAD (coronary artery disease) Mother Cancer appendix with mets 2008 Grandmother No problems noted. Brother Cancer bone cancer age 10 Surgical History History of surgery Social History adopted: No household members: spouse current occupational status: employed current occupation: [employer] Smoking Status: Never smoker alcohol intake: current alcohol intake frequency: holidays/special occasions only additional social history: Spouse:Hussein History 1 Elective abortions Hx Para 1 Spontaneous abortions Hx # Term Pregnancies Ectopic pregnancies Hx # Pregnancies Multiple births # of living children 1 Past Pregnancies Del. Date Name GA/Weeks Outcome Route Bth Weight Infant Gen Labor Lgth Anesthesia Del Locatn Provider FOB 04/12/21 All 39 live - full term vacuum Male epid ural [facility] Delivery Date: 04/12/21 Last Updated by: Heather Greco vacuum; maternal exhaustion; 2nd lac; mod mec Visit Details Expected Delivery Route/Plan Labor Preferences- CB/BF classes: no labor support person: Jeff labor intervention preferences: low intervention pain management options preferred: epidural if necessary. Would like no intervention cut cord/dad catch: cord : plans PP control planned: discussed discussed possible routes of delivery and associated risks: [] special requests: [] Plans Covid status: no vax Flu vaccine: declines Tdap vaccine: [] Rhogam: given 02/11/23 LARC form signed: yes Problem list reviewed and updated with the most current plan of care details and appropriate orders placed. Relevant counseling for the gestational age provided. Continue routine care and follow up unless otherwise noted in visit notes/problem list details OB Flowsheet Initial Weight: 214 lb Date -?-?-?-?-?-?-?-?-?-?-?-?- EGA Weight BP Urine Prot -?-?-?-?-?-?-?-?-?-?-?-?- Glucose FHR FuHt Pres Dilation -?-?-?-?-?-?-?-?-?-?-?-?- Effaced St Visit Note 11/05/22 -?-?-?-?-?-?-?-?-?-?-?-?- 13w 6d 212 lb 8 oz (-1 lb 8 oz) 130/84 Negative -?-?-?-?-?-?-?-?-?-?-?-?- Negative 160 -?-?-?-?-?-?-?-?-?-?-?-?- KW-no cramping/v b. no concerns KW-no cramping/vb. no concer ns. NOB labs reviewed. AFP declined. 12/03/22 -?-?-?-?-?-?-?-?-?-?-?-?- 17w 6d 216 lb 4 oz (+2 lb 4 oz) 133/80 Negative -?-?-?-?-?-?-?-?-?-?-?-?- Negative 152 -?-?-?-?-?-?-?-?-?-?-?-?- LC- no vb/crampi ng. no concerns. 01/01/23 -?-?-?-?-?-?-?-?-?-?-?-?- 22w 0d 218 lb (+4 lb) 121/79 Negative -?-?-?-?-?-?-?-?-?-?-?-?- Negative 130 22 -?-?-?-?-?-?-?-?-?-?-?-?- LC- no ctx/lof/v b. good fm. normal anatomy. +vaginal irritation. +curdy discharge. Diflucan rx sent. 28 week labs ordered. 01/29/23 -?-?-?-?-?-?-?-?-?-?-?-?- 26w 0d 222 lb 6.4 oz (+8 lb 6.4 oz) 108/60 -?-?-?-?-?-?-?-?-?-?-?-?- 146 26 -?--?-?-?-?-?-?-?-?-?-?-?- LC- no ctx/lof/v b. good fm. no concerns. 28 week labs ordered. LC- no ctx/lof/vb. good fm. no concerns. 28 week labs ordered. trace protein, no glucose.has not drank anything yet this AM. increase po hydration. 02/11/23 -?-?-?-?-?-?-?-?-?-?-?-?- 27w 6d 226 lb 4 oz (+12 lb 4 oz) 132/78 Negative -?-?-?-?-?--?-?-?-?-?-?-?- Negative 151 28 -?-?-?-?-?-?-?-?-?-?-?-?- -No VB, LOF. G ood FM. 28 wk labs, rhogam, larc. 02/26/23 -?-?-?-?-?-?-?-?-?-?-?-?- 30w 0d 228 lb 8 oz (+14 lb 8 oz) 135/95 125/86 Trace -?-?-?-?-?-?-?-?-?-?-?-?- Negative 140 30 -?-?-?-?-?-?-?-?-?-?-?-?- LC- no ctx/lof/v b. good fm. to start on iron supplement mild anemia. ROS Constitutional Constitutional: Reports systems reviewed and no addt'l complaints, except as documented Eyes Eyes: Denies change in vision ENT HEENT: Reports headache(s); Denies dizziness Cardiovascular Cardiovascular: Reports fatigue; Denies chest pain, dyspnea or lightheadedness Respiratory/Chest Respiratory/Chest: Reports systems reviewed and no addt'l complaints, except as documented; Denies change in mental status Gastrointestinal Gastrointestinal: Reports systems reviewed and no addt'l complaints, except as documented Genitourinary Genitourinary: Reports movement Details: present; Denies contractions or difficulty urinating Musculoskeletal Musculoskeletal: Reports systems reviewed and no addt'l complaints, except as documented Integumentary Integumentary: Reports systems reviewed and no addt'l complaints, except as documented Neurologic Neurologic: Reports headache(s); Denies dizziness Psychiatric Psychiatric: Reports systems reviewed and no addt'l complaints, except as documented Physical Exam Const alert, oriented x3 and no apparent distress Eyes no papilledema General Eye: normal appearance of both eyes Periorbital: periorbital findings normal Resp normal respiratory effort, normal air movement, no retractions and no use of accessory muscles GI soft to palpation and non-tender Palpation: soft; Negative for tender Narrative: uterus soft on palpation, no contractions, + movement Manual OB Exam: estimated gestational size appropriate Uterus Palpation: Negative for uterus tender or uterus hypertonus Extremity normal to inspection, full ROM, no calf tenderness and no pedal edema Peripheral Pulses: Yes pulses 2+ throughout Skin no rashes or lesions noted Neuro moves all extremities and deep tendon reflexes 2+ bilaterally Motor Exam: clonus absent Psych mental status grossly normal, thought process normal and cooperative Appearance: grossly normal NST FHR Rate Baby A Baseline: 140 Variability:: Moderate Decelerations:: None NST Reactive:: Yes and Appropriate for gestational age FHR Category:: Category I Uterine Activity:: none Assessment & Plan (1) Migraine with aura: COMMENT: to WP 02/27- pre e labs nl, BP WNL. D/C home-reviewed medication safety, will use tylenol PLAN: pre e labs serial BP If nl d/c home with precautions RTO for next scheduled appt or PRN (2) Supervision of high risk , antepartum: COMMENT: ALYCIA 05/07/2023 PC:All, : Hussein (3) Rh negative status during : QUALIFIERS: Trimester: third trimester Qualified Code(s): O26.893 - Other specified related conditions, third trimester; Z67.91 - Unspecified blood type, Rh negative COMMENT: rhogam at 28 weeks PRN if bleeding, Rhogam given 02/11/23. (4) : QUALIFIERS: Weeks of gestation: 30 weeks Qualified Code(s): Z3A.30 - 30 weeks gestation of COMMENT: normal anatomy, NIPT accepted. Charges/Coding Visit Charges Office Visits / Consults: 97090 OV L3 Est Multi Select Codes Urinary/Genital Urinary/Genital CPT Codes: 53036-18 non-stress test Interp
[2023-02-27 17:46] VITALS: BP 122/69; PULSE 87
[2023-02-27 17:46] LABS: Hematocrit 36.3 % (37-47); Hemoglobin 11.1 g/dL (12.0-15.0); Mean Corp Hgb Conc 30.6 g/dL (32-36); Mean Corpuscular Hgb 23.9 pg (27.0-32.0); Mean Corpuscular Volume 78.2 fL (81-99); Mean Platelet Vol. 9.5 fl (6.2-12.0); Platelet Count 367 K/mm3 (150-450); RBC Distribution Width CV 15.9 % (11.6-14.6); RBC Distribution Width SD 45.1 fl (35.1-43.9); Red Blood Count 4.64 M/mm3 (4.2-5.4); White Blood Count 12.2 K/mm3 (4.4-11.0)
[2023-02-27 17:59] LABS: Protein, Urine (Random) 7.6 mg/dL (<11.9); Protein:Creat Ratio 149 mg/g CRE (0-200)
[2023-02-27 18:01] VITALS: BP 117/71; PULSE 86
[2023-02-27 18:10] LABS: AST(SGOT) 11 U/L (15-37); Alanine Aminotransfer ALT/SGPT 14 U/L (13-56); Creatinine, Serum 0.57 mg/dL (0.55-1.02); EST Glomerular Filtration Rate 135 mL/min (>60); Est Glom Filt Rate - Afr Amer 163 mL/min (>60); Estimated Creatinine Clearance 140.01 ml/min; Uric Acid 3.9 mg/dL (2.6-6.0)
[2023-02-27 18:16] VITALS: BP 123/79; PULSE 96
== END 2023-02-27 18:35 | disposition home or self-care (01) ==
LOC: WPOUT 16:54 → WP 16:55
PROVIDERS: Referring Provider Advanced Practice Midwife; Visit Provider Advanced Practice Midwife
DX: O99.353 Diseases of the nervous system complicating pregnancy, third trimester (principal); G43.109 Migraine with aura, not intractable, without status migrainosus; Z3A.30 30 weeks gestation of pregnancy; O26.893 Other specified pregnancy related conditions, third trimester
CPT/HCPCS: 36415; 59025; 59050; 82565; 82570; 84156; 84450; 84460; 84550; 85027; 99221; G0378

== ENCOUNTER → 2023-04-22 | Outpatient (CLI) | payer MEDICAID, SELFPAY | END | disposition home or self-care (01) | PROVIDERS: Visit Provider Advanced Practice Midwife | DX: O09.90 Supervision of high risk pregnancy, unspecified, unspecified trimester (principal); Z3A.00 Weeks of gestation of pregnancy not specified | CPT/HCPCS: 87081 ==

== ENCOUNTER 2023-04-30 17:35 | Inpatient (IN) | payer MEDICAID, SELFPAY ==
[2023-04-30] VITALS (11 sets, daily range): BP systolic 125–146; BP diastolic 72–97; PULSE 79–105; TEMP 36.6–37.3; O2SAT 98–99; BMI 38.0
[2023-04-30 17:13] LABS: Hematocrit 35.4 % (37-47); Hemoglobin 10.8 g/dL (12.0-15.0); Mean Corp Hgb Conc 30.5 g/dL (32-36); Mean Corpuscular Hgb 22.8 pg (27.0-32.0); Mean Corpuscular Volume 74.8 fL (81-99); Mean Platelet Vol. 10.3 fl (6.2-12.0); Platelet Count 316 K/mm3 (150-450); RBC Distribution Width CV 17.5 % (11.6-14.6); RBC Distribution Width SD 45.7 fl (35.1-43.9); Red Blood Count 4.73 M/mm3 (4.2-5.4); White Blood Count 9.6 K/mm3 (4.4-11.0)
[2023-04-30 17:29] LABS: AST(SGOT) 15 U/L (15-37); Alanine Aminotransfer ALT/SGPT 10 U/L (13-56); Creatinine, Serum 0.74 mg/dL (0.55-1.02); EST Glomerular Filtration Rate 101 mL/min (>60); Est Glom Filt Rate - Afr Amer 122 mL/min (>60); Estimated Creatinine Clearance 107.85 ml/min; Protein, Urine (Random) 21.4 mg/dL (<11.9); Protein:Creat Ratio 186 mg/g CRE (0-200); Uric Acid 6.2 mg/dL (2.6-6.0)
--- NOTE | 2023-04-30 17:34 | PCM.HP.OB ---
HPI - General General Date of Admission: 04/30/23 HPI Narrative TERRENCE SOSA, is a 27 F who presents with elevated bps, no lennon or blurry vision no regular ctx good fm. seen in office today. Maternal Data Information ALYCIA Calculator Estimated Delivery Date Method Current WG Current Estimate 05/07/23 LMP (Certain) 39w 1d PFSH PFS Medical History (Updated 05/01/23 @ 07:[address] Fadia Simon MD) Abnormal glucose affecting Anxiety depression state Home Medications prenat.vits,roslyn,[id number]-iwvul 1 tab PO DAILY 09/06/20 [History Last Taken 04/28/23 21:00] ferrous sulfate 325 mg (65 mg iron) tablet (Feosol) 325 mg PO DAILY 04/30/23 [History Last Taken 04/27/23 21:00] Allergy/AdvReac Type Severity Reaction Status Date / Time No Known Allergies Allergy Verified 04/30/23 16:22 Family History Father Cancer prostate CAD (coronary artery disease) Mother Cancer appendix with mets 2008 Grandmother No problems noted. Brother Cancer bone cancer age 10 Surgical History History of surgery Social History adopted: No household members: spouse current occupational status: employed current occupation: [employer] Smoking Status: Never smoker alcohol intake: current alcohol intake frequency: holidays/special occasions only additional social history: Spouse:Christopher History 1 Elective abortions Hx Para 1 Spontaneous abortions Hx # Term Pregnancies Ectopic pregnancies Hx # Pregnancies Multiple births # of living children 1 Past Pregnancies Del. Date Name GA/Weeks Outcome Route Bth Weight Gen Labor Lgth Anesthesia Del Locatn Provider FOB 04/12/21 All 39 live - full term vacuum Male epidural [facility] Delivery Date: 04/12/21 Last Updated by: Heather Greco vacuum; maternal exhaustion; 2nd lac; mod mec Visit Details Expected Delivery Route/Plan Labor Preferences- CB/BF classes: no labor support person: Jeff labor intervention preferences: low intervention pain management options preferred: epidural if necessary. Would like no intervention cut cord/dad catch: cord : plans PP control planned: discussed discussed possible routes of delivery and associated risks: [] special requests: [] Plans Covid status: no vax Flu vaccine: declines Tdap vaccine: [] Rhogam: given 02/11/23 LARC form signed: yes Problem list reviewed and updated with the most current plan of care details and appropriate orders placed. Relevant counseling for the gestational age provided. Continue routine care and follow up unless otherwise noted in visit notes/problem list details OB Flowsheet Initial Weight: 214 lb Date <del>?</del> EGA Weight BP Urine Prot <del>?</del> Glucose FHR FuHt Pres Dilation <del>?</del> Effaced St Visit Note 11/05/22 <del>?</del> 13w 6d 212 lb 8 oz (-1 lb 8 oz) 130/84 Negative <del>?</del> Negative 160 <del>?</del> KW-no cramping/vb. no concerns KW-no cramping/vb. no concerns. NOB labs reviewed. AFP declined. 12/03/22 <del>?</del> 17w 6d 216 lb 4 oz (+2 lb 4 oz) 133/80 Negative <del>?</del> Negative 152 <del>?</del> LC- no vb/cramping. no concerns. 01/01/23 <del>?</del> 22w 0d 218 lb (+4 lb) 121/79 Negative <del>?</del> Negative 130 22 <del>?</del> LC- no ctx/lof/vb. good fm. normal anatomy. +vaginal irritation. +curdy discharge. Diflucan rx sent. 28 week labs ordered. 01/29/23 <del>?</del> 26w 0d 222 lb 6.4 oz (+8 lb 6.4 oz) 108/60 <del>?</del> 146 26 <del>?</del> LC- no ctx/lof/vb. good fm. no concerns. 28 week labs ordered. LC- no ctx/lof/vb. good fm. no concerns. 28 week labs ordered. trace protein, no glucose.has not drank anything yet this AM. increase po hydration. 02/11/23 <del>?</del> 27w 6d 226 lb 4 oz (+12 lb 4 oz) 132/78 Negative <del>?</del> Negative 151 28 <del>?</del> MH-No VB, LOF. Good FM. 28 wk labs, rhogam, larc. 02/26/23 <del>?</del> 30w 0d 228 lb 8 oz (+14 lb 8 oz) 135/95 125/86 Trace <del>?</del> Negative 140 30 <del>?</del> LC- no ctx/lof/vb. good fm. to start on iron supplement mild anemia. 03/11/23 <del>?</del> 31w 6d 229 lb 6 oz (+15 lb 6 oz) 129/85 Negative <del>?</del> Negative 145 32 <del>?</del> LC_ no ctx/lof/vb. good fm. no concerns. 03/26/23 <del>?</del> 34w 0d 231 lb 8 oz (+17 lb 8 oz) 117/83 Negative <del>?</del> Negative 138 34 <del>?</del> LC- no consistent ctx/lof/vb. good fm. heartburn- using tums. 04/08/23 <del>?</del> 35w 6d 235 lb 2 oz (+21 lb 2 oz) 128/83 Negative <del>?</del> Negative 135 36 <del>?</del> LC- no vb/ctx/lof. good. no concerns today 04/22/23 <del>?</del> 37w 6d 236 lb 8 oz (+22 lb 8 oz) 117/88 <del>?</del> 125 38 1 <del>?</del> 50 -3 KW-no vb/lof/some contractions on and off. GBS today 04/30/23 <del>?</del> 39w 0d 236 lb 8 oz (+22 lb 8 oz) 128/86 Negative <del>?</del> Negative 130 38 <del>?</del> LC- no vb/ctx/lof. good fm. declines VE today. gbs negative. taking BP at home reviewed parameters of when to call. denies headaches/ruq pain/visual changes. NST FHR Rate Baby A Baseline: 130 Variability:: Moderate Accelerations:: 15 x 15 Decelerations:: None NST Reactive:: Yes FHR Category:: Category I Uterine Activity:: irregular ROS Constitutional Constitutional: Reports systems reviewed and no addt'l complaints, except as documented Eyes Eyes: Denies change in vision ENT HEENT: Reports systems reviewed and no addt'l complaints, except as documented; Denies headache(s) Cardiovascular Cardiovascular: Reports systems reviewed and no addt'l complaints, except as documented; Denies chest pain or dyspnea Respiratory/Chest Respiratory/Chest: Reports systems reviewed and no addt'l complaints, except as documented Gastrointestinal Gastrointestinal: Reports systems reviewed and no addt'l complaints, except as documented; Denies abdominal pain Genitourinary Genitourinary: Reports systems reviewed and no addt'l complaints, except as documented, contractions Details: present (irregular) and movement Details: present; Denies dysuria or genital lesions Musculoskeletal Musculoskeletal: Reports systems reviewed and no addt'l complaints, except as documented Neurologic Neurologic: Reports systems reviewed and no addt'l complaints, except as documented Endocrine Endocrinology: Reports systems reviewed and no addt'l complaints, except as documented Vital Signs Vital Signs Vital Signs: 04/30/23 16:14 04/30/23 16:14 04/30/23 16:14 Temperature Temperature Source Temporal Pulse Rate 89 Blood Pressure BP Systolic BP Diastolic Pulse Ox 98 04/30/23 16:14 04/30/23 16:14 04/30/23 16:14 Temperature 97.8 F Temperature Source Pulse Rate 90 Blood Pressure BP Systolic BP Diastolic Pulse Ox 98 04/30/23 16:25 04/30/23 16:25 04/30/23 16:41 Temperature Temperature Source Pulse Rate 96 Blood Pressure 127/96 H 130/97 H BP Systolic 127 130 BP Diastolic 96 97 Pulse Ox 04/30/23 16:41 04/30/23 16:56 04/30/23 16:56 Temperature Temperature Source Pulse Rate 100 86 Blood Pressure 125/90 H BP Systolic 125 BP Diastolic 90 Pulse Ox 04/30/23 17:11 04/30/23 17:11 04/30/23 17:21 Temperature Temperature Source Pulse Rate 90 Blood Pressure 125/91 H 136/96 H BP Systolic 125 136 BP Diastolic 91 96 Pulse Ox 04/30/23 17:21 04/30/23 17:27 04/30/23 17:27 Temperature Temperature Source Pulse Rate 79 92 Blood Pressure 146/93 H BP Systolic 146 BP Diastolic 93 Pulse Ox Weight Weight: 235 lb 10.786 oz Body Mass Index (BMI) 38.0 Physical Exam Const alert, oriented x3, no apparent distress and healthy appearing HEENT normocephalic and moist oral mucous membranes Head and Scalp: atraumatic Neck full ROM, no lymphadenopathy, supple and thyroid normal General: trachea midline Lymph Lymphatic: no lymphadenopathy noted Chest inspection of chest normal Resp normal respiratory effort Cardio regular rate GI normal to inspection, nondistended, normoactive bowel sounds, soft to palpation and non-tender Inspection: gravid external exam normal Narrative: 1-2 cm Manual OB Exam: estimated gestational size appropriate, presentation cephalic, dilated, effaced and station Extremity normal to inspection General Extremity: Negative for edema Skin no rashes or lesions noted Neuro no focal motor deficits and deep tendon reflexes 2+ bilaterally Motor Exam: strength 5/5 throughout and clonus absent Psych mental status grossly normal Labs Labs Labs: Blood Type B NEGATIVE Antibody Screen NEGATIVE Hct 35.4 % (37-47) L Hgb 10.8 g/dL (12.0-15.0) L Obstetrics Ultrasound Syphilis Total Ab Non-reactive Rubella IgG Antibody Reactive (Nonreactive) Hep Bs Antigen Non-Reactive (Nonreactive) Hepatitis C Antibody Non-Reactive (Nonreactive) Chlamydia DNA (NIDA) Negative (Negative) N.gonorrhoeae DNA (NIDA) Negative (Negative) HIV 1&2 Antibody Non-Reactive (Nonreactive) Glucose 1 Hr 50 gm 110 mg/dL (70-140) Gest Glucose Tolerance MG/DL Assessment & Plan (1) Gestational hypertension: (2) Encounter for induction of labor: (3) Anemia affecting : COMMENT: Add Fe- improved on 02/27 11.1, continue on supplements. (4) Obesity (BMI 30.0-34.9): COMMENT: early glucola 10-15 pound weight gain/healthy weight in (5) : QUALIFIERS: Weeks of gestation: 39 weeks Qualified Code(s): Z3A.39 - 39 weeks gestation of COMMENT: gbs neg, normal anatomy, NIPT accepted. (6) Supervision of high risk , antepartum: COMMENT: ALYCIA 05/07/2023 girl- Kenneth PC:All, : Hussein (7) Rh negative status during : QUALIFIERS: Trimester: third trimester Qualified Code(s): O26.893 - Other specified related conditions, third trimester; Z67.91 - Unspecified blood type, Rh negative COMMENT: rhogam at 28 weeks PRN if bleeding, Rhogam given 02/11/23. PLAN: Plan Patient presents IOL, plan management for with cytotec. Pain management: minimal intervention preferred, income tax manager and superintendent container terminal will be primary. GBS negative. Management of any complications: none I have reviewed the [facility] and made any clinically relevant updates.
--- OUTSIDE RECORDS SUMMARY | 2023-04-30 18:23 | XMS RPT_ITS | CCD ---
Author Name Unknown Address [address] [place] [address] [address] [place] [address] Organization [facility] Care Team Providers Care Unemployment Examiner Name Role Phone NO PRIMARY CARE, Primary Care Unavailable AASHISH SALGADO Referring CECILIA Harvey Attending Unavailable Encounters Encounter Date Encounter Type Care Provider Facility Start: 12-16-2022 End: 12-16-2022 ambulatory MD NO PRIMARY CARE [facility] Payers Date Payer Category Payer Unknown [id number] Unknown [id number] Summary Purpose Family History No Family History Records Found Advance Directives No Advanced Directives Records Found Additional Source Comments INFORMATION SOURCE (unrecogn ized section and content) FOR RECORDS PERTAINING TO PATIENTS WHO ARE OR HAVE BEEN ENROLLED IN A CHEMICAL DEPENDENCY/SUBSTANCEABUSE PROGRAM, SOME INFORMATION MAY BE OMITTED. This clinical summary was aggregated from multiple sources. Caution should be exercised in using it in the provision of clinical care. This summary normalizes information from multiple sources, and as a consequence, information in this document may materially change the coding, format and clinical context of patient data. In addition, data may be omitted in some cases. CLINICAL DECISIONS SHOULD BE BASED ON THE PRIMARY CLINICAL RECORDS. [employer] [facility]. provides no warranty or guarantee of the accuracy or completeness of information in this document.
[2023-04-30 18:49] LABS: Syphilis Antibodies Non-reactive
--- OUTSIDE RECORDS SUMMARY | 2023-04-30 19:04 | XMS RPT_ITS | CCD ---
Author Name Unknown Address [address] [place] [address] [address] [place] [address] Organization [facility] Care Team Providers Care Officer Captain Name Role Phone NO PRIMARY CARE, Primary Care Unavailable AASHISH SALGADO Referring CECILIA Harvey Attending Unavailable Encounters Encounter Date Encounter Type Care Provider Facility Start: 12-16-2022 End: 12-16-2022 ambulatory MD NO PRIMARY CARE [facility] Payers Date Payer Category Payer Unknown [id number] [id number] Unknown [id number] Summary Purpose Family History No Family History [...] BE BASED ON THE PRIMARY CLINICAL RECORDS. [facility] [facility]. provides no warranty or guarantee of the accuracy or completeness of information in this document.
[2023-04-30] MEDS: miSOPROStol 25 MCG TABLET PO ×2 (19:21→23:40)
[2023-04-30] MEDS: DiphenhydrAMINE 25 MG Capsule 50 MG PO (20:35)
[2023-04-30] MEDS: Lactated Ringers 1,000 ML 200 ML IV (21:25)
[2023-04-30] MEDS: 0.9% Saline Lock 10 ML Syringe IV (21:25)
[2023-05-01] VITALS (21 sets, daily range): BP systolic 122–148; BP diastolic 71–99; PULSE 71–132; TEMP 36.3–36.7; O2SAT 98–100
[2023-05-01] MEDS: Lactated Ringers 1,000 ML 200 ML IV ×2 (01:59→07:18)
[2023-05-01] MEDS: Acetaminophen 500 MG Tablet PO ×3 (03:45→18:32)
[2023-05-01] MEDS: miSOPROStol 25 MCG TABLET PO (03:45)
[2023-05-01] MEDS: 0.9% Normal Saline Single 100 ML IV.SOLN. INTRA-UTER (08:15)
--- NOTE | 2023-05-01 08:36 | PCM.PN.OB ---
Subjective Subjective mild cramping overnight, otherwise slept well in between cytotec doses. Objective Data Objective Data Vital Signs: Vital Signs Temp Pulse BP Pulse Ox 99.1 F 100 134/82 H 98 04/30/23 23:23 05/01/23 08:18 05/01/23 08:18 05/01/23 03:40 Weight: 235 lb 10.786 oz Body Mass Index (BMI) 38.0 Intake & Output: Intake and Output for Last 24 Hours 04/29/23 04/30/23 05/01/23 23:59 23:59 23:59 Intake Total 1912. / Balance / Lab / Micro Data 04/30/23 16:45 04/30/23 16:45 Labs: Laboratory Results - last 24 hr 04/30/23 16:45: WBC 9.6, RBC 4.73, Hgb 10.8 L, Hct 35.4 L, MCV 74.8 L, MCH 22.8 L, MCHC 30.5 L, RDW Std Deviation 45.7 H, RDW Coeff of Emily 17.5 H, Plt Count 316, MPV 10.3, Creatinine 0.74, Estim Creat Clear Calc 107.85, Est GFR (MDRD) Af Amer 122, Est GFR (MDRD) Non-Af 101, Uric Acid 6.2 H, AST 15, ALT 10 L, U Random Total Protein 21.4 H, Urine Creatinine 115.00, Protein/Creatinin Ratio 186, Syphilis Total Ab Non-reactive, Blood Type B NEGATIVE, Antibody Screen NEGATIVE NST FHR Rate Baby A Baseline: 140 Variability:: Moderate Accelerations:: 15 x 15 Decelerations:: None NST Reactive:: Yes FHR Category:: Category I Uterine Activity:: irregular Assessment & Plan (1) Encounter for induction of labor: COMMENT: cytotec x3 doses. transitioned to pryor bulb with pitocin (2) Gestational hypertension: COMMENT: PEC labs negative. BP 130-140s/80-90s (3) : QUALIFIERS: Weeks of gestation: 39 weeks Qualified Code(s): Z3A.39 - 39 weeks gestation of COMMENT: gbs neg, normal anatomy, NIPT accepted. (4) Rh negative status during : QUALIFIERS: Trimester: third trimester Qualified Code(s): O26.893 - Other specified related conditions, third trimester; Z67.91 - Unspecified blood type, Rh negative COMMENT: rhogam at 28 weeks PRN if bleeding, Rhogam given 02/11/23. (5) Supervision of high risk , antepartum: COMMENT: ALYCIA 05/07/2023 girl- Snadra PC:All, : Hussein
[2023-05-01] MEDS: Oxytocin 15 Units/NS 250ml 15 UNITS/250 ML IV.SOLN 2 UNITS IV (09:03)
[2023-05-01] MEDS: CHLORHEXIDINE GLUC 2% CLOTH 1 EACH TOWELETTE TOPICAL (12:00)
--- NOTE | 2023-05-01 13:20 | PCM.PN.OB ---
Subjective Subjective contractions with increased intensity, breathing through. Objective Data Objective Data Vital Signs: Vital Signs Temp Pulse BP Pulse Ox 98.0 F 78 132/83 H 99 05/01/23 13:00 05/01/23 13:14 05/01/23 13:03 05/01/23 13:14 Weight: 235 lb 10.786 oz Body Mass Index (BMI) 38.0 Intake & Output: Intake and Output for Last 24 Hours 04/29/23 04/30/23 05/01/23 23:59 23:59 23:59 Intake Total 1920.73 / 1920.73 Balance 1920.73 / 1920.73 Lab / Micro Data 04/30/23 16:45 04/30/23 16:45 Labs: Laboratory Results - last 24 hr 04/30/23 16:45: WBC 9.6, RBC 4.73, Hgb 10.8 L, Hct 35.4 L, MCV 74.8 L, MCH 22.8 L, MCHC 30.5 L, RDW Std Deviation 45.7 H, RDW Coeff of Emily 17.5 H, Plt Count 316, MPV 10.3, Creatinine 0.74, Estim Creat Clear Calc 107.85, Est GFR (MDRD) Af Amer 122, Est GFR (MDRD) Non-Af 101, Uric Acid 6.2 H, AST 15, ALT 10 L, U Random Total Protein 21.4 H, Urine Creatinine 115.00, Protein/Creatinin Ratio 186, Syphilis Total Ab Non-reactive, Blood Type B NEGATIVE, Antibody Screen NEGATIVE NST FHR Rate Baby A Baseline: 155 Variability:: Moderate Accelerations:: 15 x 15 Decelerations:: None NST Reactive:: Yes FHR Category:: Category I Uterine Activity:: q3-4 minutes Assessment & Plan (1) Encounter for induction of labor: COMMENT: cytotec x3 doses. transitioned to pryor bulb with pitocin (2) Gestational hypertension: COMMENT: PEC labs negative. BP 130-140s/80-90s PLAN: Plan at 39.1 with ghtn. BP 120-130s/80s, denies headaches, RUQ pain or visual changes. on pitocin 8mu. 5/70/-3 current tracing: FHT: Moderate variability reactive no decelerations category I tracing [place]: Contractions reviewed tracing abnormalities since last note: tachycardia during hot shower, decreased once out to baseline. A/P: active labor. -position changes. [employer] construction worker arrived. -unmedicated as goal, open to epidural for pain management. may have upon request -AROM once head descends, declines AROM now.
--- NOTE | 2023-05-01 18:45 | OP.PCM_ITS ---
Assessment & Plan (1) (spontaneous vaginal delivery): COMMENT: MEHREEN 05/01/2023 IOL ghtn. girl:Sandra Maternal Data Information ALYCIA Calculator Estimated Delivery Date Method Current WG Current Estimate 05/07/23 LMP (Certain) 39w 1d Final ALYCIA: 05/07/23 Final ALYCIA Source: LMP Gestational age: 39.1 Vaginal Delivery Maternal Presentation Maternal Presentation: Medically Indicated Induction Maternal Presentation: at 39 weeks with gestational htn. IOL with cytotec, pryor bulb/pitocin. AROM and became fully dilated with urge to push. BP stable and labs negative for PEC. Type of Induction: Pitocin, Pryor Bulb, Amniotomy and Cytotec Medical Reason for Induction: Gestational Hypertension Operative Information Date of Procedure: 05/01/23 Pre-Operative Diagnosis: see problem list. Post-Operative Diagnosis: Surgery / Procedure Performed: Spontaneous Vaginal Delivery Type of Anesthesia: None Estimated Blood Loss: 250 Time of Delivery: 17:27 Findings Description of Procedure: Patient began pushing and delivered the head in the ZEE presentation. The head was delivered atraumatically. The anterior and posterior shoulders delivered without complication followed by the rest of the and the infant was placed on the maternal abdomen. Delayed cord clamping was employed for approximately 60 seconds. Cord was clamped and cut and gentle traction was applied to the cord and the placenta delivered spontaneously immediately following it was noted to be intact with three-vessel cord. The perineum and vagina were inspected and noted to have no laceration. EBL was 250cc. Patient and tolerated delivery well. entered recovery phase bonding skin to skin. baby girl Sandra Simon updated on delivery, routine pp orders. Presentation: Vertex Amniotic Membrane Rupture Type: Artificial Amniotic Fluid Description: Clear Placental Delivery Description: Spontaneous Placenta Disposition: [facility] Cord Vessel Description: 3 Vessels Cord Entanglement: None Infant A Gender: Female (1 minute): 8 (5 minute): 9 Delayed Cord Clamping: Yes Post Vaginal Delivery Medications Given After Delivery: IV Pitocin Episiotomy Description: None Laceration: None Procedures Urinary/Genital [id number]: [id number] Vaginal Delivery [facility]
--- NOTE | 2023-05-01 18:51 | DCINST_ITS ---
Discharge Instructions Diet Discharge Diet: No restrictions Activity Discharge Activity: May Not Drive and May Shower May resume sexual activity in: 6 weeks Weight Bearing Status: Full weight bearing Dressing / Incision Call your doctor if your incision/area has: Sudden Increased Bleeding, Increased Pain/ Swelling and Foul Smelling Discharge Call your doctor if you observe: Fever of 101 or Higher, Numbness or Tingling, Change in Color, Inability to urinate, Inability to have a bowel movement, Using more than 1 pad per hour, Shortness of breath, Dizziness, Fainting spells, Chest pain, Calf discomfort and Uncontrolled pain Follow Up Care Please Follow Up With: Jil Suresh CNM When: 6 weeks , please call office to make an appointment. Congratulations on the of your baby girl MAGY!!!!! Test Results: Test results from this visit will be discussed in further detail at your follow- up appointment, if applicable. Discharge Plan Admission Admit Date/Time: 04/30/23 17:35 Attending Provider: Jil Suresh Primary Care Provider: Care Physician,Nafisa Primary Discharge Orders/Prescriptions Prescriptions: No Action prenat.vits,roslyn,[id number] Tablet 1 tab PO DAILY ferrous sulfate [Feosol] 325 mg (65 mg iron) tablet 325 mg PO DAILY Referrals / Follow Up: Care Physician,No Primary [Primary Care Provider] - Disposition Disposition (needs filled in before D/C Order can be placed): Home, Self Care
[2023-05-01] MEDS: Oxytocin 15 Units/NS 250ml 15 UNITS/250 ML IV.SOLN 83 UNITS IV (19:00)
[2023-05-01] MEDS: Naproxen 500 MG Tablet PO (21:14)
[2023-05-02] MEDS: Rho(D) Immune Globulin 300 MCG (1500 Unit) Syringe IV (00:46)
[2023-05-02] MEDS: 0.9% Saline Lock 10 ML Syringe IV (00:47)
[2023-05-02 00:50] VITALS: BP 110/68; PULSE 77; RESP 15; TEMP 36.6; O2SAT 98
[2023-05-02] MEDS: Acetaminophen 500 MG Tablet 1000 MG PO ×3 (02:25→15:54)
[2023-05-02 05:00] VITALS: BP 126/84; PULSE 79; RESP 15; TEMP 36.6; O2SAT 97
[2023-05-02] MEDS: Naproxen 500 MG Tablet PO ×2 (05:00→13:22)
[2023-05-02 08:20] VITALS: BP 128/77; PULSE 91; RESP 14; TEMP 36.6
--- NOTE | 2023-05-02 10:07 | PCM.PN.OB ---
Subjective Subjective Patient doing well without complaints. Tolerating PO. Ambulating and voiding without difficulty. Feeding well. Denies chest pain, shortness of breath, calf pain/swelling, fevers, chills, lightheadedness. Objective Data Objective Data Vital Signs: Vital Signs Temp Pulse Resp BP Pulse Ox O2 Del Method 97.9 F 91 14 128/77 H 97 Room Air 05/02/23 08:20 05/02/23 08:20 05/02/23 08:20 05/02/23 08:20 05/02/23 05:00 05/02/23 08:20 Oxygen Delivery Method Room Air Weight: 235 lb 10.786 oz Body Mass Index (BMI) 38.0 Intake & Output: Intake and Output for Last 24 Hours 04/30/23 05/01/23 05/02/23 23:59 23:59 23:59 Intake Total 2841.96 / 2841.96 Output Total 500 / 500 300 / 300 Balance 2341.96 / 2341.96 -300 / -300 Lab / Micro Data Attestation: I reviewed the patient's lab results. 04/30/23 16:45 04/30/23 16:45 Labs: Laboratory Results - last 24 hr 05/01/23 20:55: Screen NEGATIVE, Baby's Blood Type B POSITIVE, Baby's CAMP[place]LL NEGATIVE ROS Constitutional Constitutional: Reports systems reviewed and no addt'l complaints, except as documented; Denies anorexia or headache(s) Cardiovascular Cardiovascular: Reports systems reviewed and no addt'l complaints, except as documented; Denies dizziness, dyspnea, nausea or tachypnea Respiratory/Chest Respiratory/Chest: Reports systems reviewed and no addt'l complaints, except as documented; Denies cough, dyspnea, shortness of breath at rest or tachypnea Gastrointestinal Gastrointestinal: Reports systems reviewed and no addt'l complaints, except as documented; Denies abdominal pain, constipation or nausea Genitourinary Genitourinary: Reports systems reviewed and no addt'l complaints, except as documented; Denies burning urination, difficulty urinating, dysuria, urinary frequency or urinary incontinence Musculoskeletal Musculoskeletal: Reports systems reviewed and no addt'l complaints, except as documented Integumentary Integumentary: Reports systems reviewed and no addt'l complaints, except as documented Neurologic Neurologic: Reports systems reviewed and no addt'l complaints, except as documented; Denies abnormal speech, dizziness or headache(s) Psychiatric Psychiatric: Reports systems reviewed and no addt'l complaints, except as documented Endocrine Endocrinology: Reports systems reviewed and no addt'l complaints, except as documented Hematologic/Lymphatic Hematologic/Lymphatic: Reports systems reviewed and no addt'l complaints, except as documented Physical Exam Const alert, oriented x3 and no apparent distress Neck full ROM Resp normal respiratory effort, normal air movement and no retractions Effort and Inspection: able to speak in complete sentences and symmetric chest movement GI soft to palpation Bladder / Kidney Exam: bladder normal to palpation Uterus Palpation: uterus fundus firm Extremity normal to inspection and full ROM Psych mental status grossly normal, thought process normal and cooperative Assessment & Plan (1) (spontaneous vaginal delivery): COMMENT: MEHREEN 05/01/2023 IOL ghtn. girl:Sandra PLAN: s/p PPD # 1 1. routine post delivery care 2. breast feeding- support given 3. rh negative 4. rubella immune 5. Discharge Home (2) Gestational hypertension: COMMENT: PEC labs negative. BP 130-140s/80-90s (3) Anemia affecting : COMMENT: Add Fe- improved on 02/27 11.1, continue on supplements. (4) Obesity (BMI 30.0-34.9): COMMENT: early glucola 10-15 pound weight gain/healthy weight in (5) History of PCOS: COMMENT: fatigue, irregular menses prior to , TSH/T4 added (6) Rh negative status during : QUALIFIERS: Trimester: third trimester Qualified Code(s): O26.893 - Other specified related conditions, third trimester; Z67.91 - Unspecified blood type, Rh negative COMMENT: rhogam at 28 weeks PRN if bleeding, Rhogam given 02/11/23. Charges/Coding Multi Select Codes Urinary/Genital Urinary/Genital CPT Codes: No Charge
--- NOTE | 2023-05-02 10:08 | DCINST_ITS ---
Discharge Instructions Diet Discharge Diet: No restrictions Activity Discharge Activity: Return to Normal Activity May resume sexual activity in: 6 weeks Weight Bearing Status: Full weight bearing Dressing / Incision Call your doctor if your incision/area has: Sudden Increased Bleeding, Increased Pain/ Swelling and Foul Smelling Discharge Call your doctor if you observe: Fever of 101 or Higher, Numbness or Tingling, Change in Color, Inability to urinate, Inability to have a bowel movement, Using more than 1 pad per hour, Shortness of breath, Dizziness, Fainting spells, Chest pain, Calf discomfort and Uncontrolled pain Follow Up Care Please Follow Up With: Jil Suresh CNM When: Please call the office to schedule your follow up appointment in 6 weeks. If you had high blood pressure please call to schedule an appointment in 2 weeks. Test Results: Test results from this visit will be discussed in further detail at your follow- up appointment, if applicable. Discharge Plan Admission Admit Date/Time: 04/30/23 17:35 Attending Provider: Jil Suresh Primary Care Provider: Care Physician,Nafisa Primary Discharge Orders/Prescriptions Prescriptions: No Action prenat.vits,roslyn,[id number] Tablet 1 tab PO DAILY ferrous sulfate [Feosol] 325 mg (65 mg iron) tablet 325 mg PO DAILY Referrals / Follow Up: Care Physician,No Primary [Primary Care Provider] - Disposition Disposition (needs filled in before D/C Order can be placed): Home, Self Care
[2023-05-02 13:20] VITALS: BP 138/55; PULSE 79; RESP 14; TEMP 36.8
[2023-05-02 17:45] VITALS: BP 127/82; PULSE 82; RESP 16
== END 2023-05-02 18:40 | disposition home or self-care (01) | DRG 560 ==
LOC: WPOUT 17:41 → WP 17:41
PROVIDERS: Obstetrics & Gynecology; Admitting Provider Registered Nurse; Referring Provider Registered Nurse; Visit Provider Registered Nurse
DX: O13.4 Gestational [pregnancy-induced] hypertension without significant proteinuria, complicating childbirth (principal); Z37.0 Single live birth; O26.893 Other specified pregnancy related conditions, third trimester; Z3A.39 39 weeks gestation of pregnancy; Z67.91 Unspecified blood type, Rh negative; Z87.42 Personal history of other diseases of the female genital tract; O99.02 Anemia complicating childbirth
CPT/HCPCS: 59025; 59050; 82565; 82570; 84156; 84450; 84460; 84550; 85027; 85461; 86780; 86850; 86900; 86901; 90384; 99221; J7120; A4216; G0378; J2790; J2791